=== PATIENT | female | born 1985 | race Caucasian/White ===

== ENCOUNTER 2018-10-01 00:33 | Day surgery (SDC) | payer BC ==
[~2018-10-01] VITALS: Ht 165.1 cm; Wt 78.9 kg
[~2018-10-01 00:33] MED LIST: AUG500 PO; CETI-459 PO; FLUT16SP19 NS; LOR5 PO; LORA10CA3 PO; MET10 PO; NORG1TAB5 PO; OMEP-218 PO; PER PO; SERT-177 PO; ZOL5 PO
[2018-10-01] MEDS ORDERED: LIDOCAINE/SOD BICARB 8.4% SYR ID ONE (06:30)
[2018-10-01] MEDS ORDERED: FAMOTIDINE 20 MG TAB PO ONE (06:30)
[2018-10-01] MEDS ORDERED: NORMOSOL R SOLN(*) 1000 ML BAG 1,000 ML IV PRN (06:30)
[2018-10-01] MEDS ORDERED: metroNIDAZOLE* 500MG/100ML BAG 100 ML IVPB ONE (07:00)
[2018-10-01] MEDS ORDERED: LEVOFLOXACIN/D5W*500 MG/100 ML 100 ML IVPB ONE (07:00)
[2018-10-01 07:13] VITALS: BP 115/83
[2018-10-01] MEDS ORDERED: DEXAMETHASONE SOD PHOS 10MG/ML ONE (08:04)
[2018-10-01] MEDS ORDERED: PROPOFOL EMUL(*) 10MG/ML 20 ML 20 ML ONE (08:04)
[2018-10-01] MEDS ORDERED: ONDANSETRON 4 MG/2 ML VIAL ONE (08:04)
[2018-10-01] MEDS ORDERED: LIDOCAINE/PF 2% 200MG/10ML AMP 200 MG/10 ML AMPUL ONE (08:14)
[2018-10-01] MEDS ORDERED: BUPIVACAINE 0.5% INJ 50ML VIAL INFIL ONE (08:14)
[2018-10-01] MEDS ORDERED: LIDOCAINE 2% JELLY 30 ML TUBE ONE (08:17)
[2018-10-01] MEDS ORDERED: fentaNYL CITR 100 MCG/2 ML AMP ONE (08:23)
[2018-10-01] MEDS ORDERED: MIDAZOLAM 2 MG/2 ML VIAL IVP PRN (08:25)
[2018-10-01] MEDS ORDERED: BUPIVACAINE/EPI 0.5% 50ML VIAL INFIL ONE (09:02)
[2018-10-01] MEDS ORDERED: HYDR-654 PO (09:41)
[2018-10-01] MEDS ORDERED: LIDO15SO2 TOP (09:43)
--- NOTE | 2018-10-01 09:46 | Short(Outpt) Discharge Summary ---
Discharge Summary Reason for Hosp/Final Diag: (1) Hemorrhoid Hospital Course & Plan: pt presented for colonoscopy and hemorrhoidectomy. she tolerated the procedures well and will be discharged home when criteria met. Departure Discharge to: Home Discharge Instructions Home Meds Active Scripts Lidocaine HCl VISCOUS 2% (Lidocaine Viscous) 2 % Solution, 1 DORA TOP Q4H PRN for PAIN, #1 TUBE 1 Refill Prov:JUAN JOSE RODRIGUES 10/01/18 Hydrocodone Bit/Acetaminophen (NORCO 7.5-325 TABLET) 1 Each Tablet, 1 EACH PO Q4H PRN for PAIN, #30 TAB Prov:JUAN JOSE RODRIGUES 10/01/18 Reported Medications Fluticasone Prop 50 Mcg Ns (FLONASE 50 MCG NS) 16 Gm [place].susp, 1 SPRAY NS BID, BOT 09/25/18 Loratadine (CLARITIN) 10 Mg Capsule, 10 MG PO, CAPSULE 09/25/18 Discontinued Reported Medications Oxycodone/Acetaminophen (OXYCODONE/ACETAMINOPHEN 5MG/325 MG) 5 Mg/325 Mg Tab, 1 TAB PO Q4-6H PRN, #15 0 Refills 11/20/09 Amoxicillin/Clavulanate K (Augmentin) 500 Mg Tab, 500 MG PO TID, #15 0 Refills 11/20/09 Norgestimate-Ethinyl Estradiol (Ortho-Cyclen) 1 Tab Tablet, 1 TAB PO DAILY, #1 0 Refills 11/19/09 Diet: Regular Activity: No Heavy Lifting Special Instructions: fiber supplement, stool softener, and laxative as needed. sitz baths 15 min 3x/day prn. f/u [facility] 2 wks. JUAN JOSE RODRIGUES Oct 01, 2018 09:46
[2018-10-01 10:20] VITALS: BP 109/70
[2018-10-01 10:30] VITALS: BP 116/76
[2018-10-01 10:45] VITALS: BP 114/79
[2018-10-01 10:47] VITALS: BP 122/72
--- NOTE | 2018-10-01 10:58 | OPERATIVE REPORT 1 ---
EVENT DATE: October 01, 2018 SURGEON: Davin Erickson MD ANESTHESIOLOGIST: Ludin Benjamin MD ANESTHESIA: General and local. ARCHITECT INTERNSHIP: None. PREOPERATIVE DIAGNOSIS Bright red blood per rectum and hemorrhoid. POSTOPERATIVE DIAGNOSIS Bright red blood per rectum and hemorrhoid. PROCEDURE PERFORMED 1. Colonoscopy with biopsies. 2. Exam under anesthesia. 3. Hemorrhoidectomy. FLUIDS IV crystalloid. ESTIMATED BLOOD LOSS Minimal. SPECIMENS 1. Descending colon biopsies. 2. Left posterior external hemorrhoid. COMPLICATIONS None. INDICATIONS This is a 32-year-old female with some bright red blood per rectum as well as an external hemorrhoid that has been chronically bothersome to her. Risk and benefits of the procedure have been explained and consent was signed. DESCRIPTION OF PROCEDURE The patient was taken to the operating room and placed in the supine position. General anesthesia was administered per Anesthesia team. The patient was placed in the frog-leg position and a perianal and digital rectal exam were performed. The perianal exam revealed the left posterior external hemorrhoid. Digital rectal exam was within normal limits. The colonoscope was advanced through the anus to the cecum under direct vision. The cecum was identified by the ileocecal valve and the appendiceal orifice. The scope was withdrawn along the entire length of the colon, examining the mucosa. The prep was good. In the descending colon, there was a linear, mild irritation. This was not bleeding. This was biopsied. Otherwise there was no abnormality in the colon or rectum. Carbon dioxide was suctioned from the rectum prior to withdrawing the scope. The patient was then placed in candy-cane stirrups. She was prepped and draped in normal sterile fashion. Exam under anesthesia was performed and showed only the posterior external hemorrhoid. An incision was made in the anoderm. Blunt dissection with the hemostat was used to lift the hemorrhoid tissue off the internal sphincter muscle. Harmonic scalpel was then used to remove the hemorrhoid. Hemostasis was assured. A running locking 3-0 Chromic stitch was used to close the defect. Local analgesic was injected at the wound site and in the form of a block. A lidocaine roll was place in the anus. The patient tolerated the procedure well. There were no complications. [facility]
== END 2018-10-01 10:20 | disposition home or self-care (01) ==
LOC: OR 00:33
PROVIDERS: ATTEND Surgery
DX: K64.9 Unspecified hemorrhoids (principal); K62.5 Hemorrhage of anus and rectum
CPT/HCPCS: 00811; 45380; 46999; 81025; 88305; J1100; J1956; J2250; J2405; J2704; J3010; J3490; J2001